=== PATIENT | female | born 1965 | race Caucasian/White ===

== ENCOUNTER → 2018-10-15 | Outpatient (CLI) | payer OTHER ==
[2015-01-07 15:23] VITALS: BP 106/59
--- NOTE | 2018-10-15 16:00 | RAD ---
Chest, 2 views, 10/15/2018: HISTORY: Shoulder pain and chest discomfort The heart size and pulmonary vascularity are normal. There is minimal scarring in the left base laterally. No acute infiltrate is seen. There is no evidence of pleural fluid. Mild degenerative changes are evident in the spine. IMPRESSION: No acute cardiopulmonary abnormality is detected. Left shoulder, 3 views, 10/15/2018: No fracture or dislocation is identified. No significant arthritic change is seen. The periarticular soft tissues are unremarkable. IMPRESSION: No significant left shoulder abnormality is detected. Electronically signed by: Kenneth Singh MD (10/15/2018 3:56 PM) [facility]
== END | disposition home or self-care (01) ==
LOC: PMG 15:17
PROVIDERS: ATTEND Registered Nurse
DX: R07.89 Other chest pain (principal); M25.512 Pain in left shoulder; M47.814 Spondylosis without myelopathy or radiculopathy, thoracic region
CPT/HCPCS: 71046; 73030

== ENCOUNTER → 2020-02-22 | Outpatient (CLI) | payer OTHER ==
[2015-01-07 15:23] VITALS: BP 106/59
--- NOTE | 2020-02-22 15:16 | RAD ---
EXAM: Chest, 2 views HISTORY: Cough. Chest pain. COMPARISON: 10/15/2018 FINDINGS: 2 views of the chest are obtained. There is no infiltrate, pleural effusion or pneumothorax. The heart is normal in size. IMPRESSION: No acute pulmonary finding. Electronically signed by: Carmen Alfredo MD (02/22/2020 3:13 PM) [id number]
== END | disposition home or self-care (01) ==
LOC: PMG 14:53
PROVIDERS: ATTEND Family Medicine
DX: R05 Cough (principal)
CPT/HCPCS: 71046

== ENCOUNTER → 2021-03-24 | Outpatient (CLI) | payer OTHER ==
[2015-01-07 15:23] VITALS: BP 106/59
--- NOTE | 2021-03-24 10:52 | RAD ---
XR HIP_RT 2-3VIEWS History: Reason: RIGHT HIP PAIN / Spl. Instructions: / History: Technique: 2 views right hip Comparison: None. Findings: Normal alignment. No fracture. Impression: 1. No acute osseous abnormality. Electronically signed by: Johnathon Chin DO (03/24/2021 10:50 AM) [facility]
== END ==
LOC: PMG 09:28
PROVIDERS: ATTEND Family Medicine
DX: M25.551 Pain in right hip (principal)
CPT/HCPCS: 73502

== ENCOUNTER → 2021-07-03 | Outpatient (CLI) | payer OTHER ==
[2015-01-07 15:23] VITALS: BP 106/59
--- NOTE | 2021-07-03 08:10 | RAD ---
EXAMINATION: XR CHEST 2V CLINICAL HISTORY: COUGH X 4 DAYS RIGHT POSTERIOR RIB PAIN, PALPITATIONS WORSE EXAM DATE/TIME: 07/03/2021 7:40 AM COMPARISON: None FINDINGS: Lines, Tubes, and Devices: None. Cardiomediastinal Silhouette: Normal heart size. Lungs and Pleura: Question minimal patchy opacities in the right lower lung zone. Minimal bibasilar s ubsegmental atelectasis. No pleural effusion. Pulmonary vasculature unremarkable. Bones and Soft Tissues: Degenerative changes of the thoracic spine. Cholecystectomy clips. IMPRESSION: Question minimal patchy airspace disease in the right lower lung zone. Electronically signed by: Williams To DO (07/03/2021 8:08 AM) [facility]
== END ==
LOC: RAD 07:34
PROVIDERS: ATTEND Nurse Practitioner Family
DX: J98.11 Atelectasis (principal); R05 Cough
CPT/HCPCS: 71046

== ENCOUNTER → 2021-08-15 | Outpatient (CLI) | payer OTHER ==
[2015-01-07 15:23] VITALS: BP 106/59
--- NOTE | 2021-08-15 11:56 | RAD ---
EXAM: Left knee, 2 views. HISTORY: Fall. COMPARISON: None. FINDINGS: 2 views of the left knee are obtained. There is no fracture, dislocation or subluxation. Th ere is trace joint fluid, without a significant effusion. IMPRESSION: No acute osseous finding. Electronically signed by: Carmen Alfredo MD (08/15/2021 11:53 AM) [id number]
== END ==
LOC: RAD 11:34
PROVIDERS: ATTEND Physician Assistant
DX: M25.561 Pain in right knee (principal)
CPT/HCPCS: 73560

== ENCOUNTER 2021-12-19 20:26 | Emergency (ER) | payer OTHER ==
[~2021-12-19] VITALS: Ht 157.5 cm; Wt 108.0 kg
--- NOTE | 2021-12-19 20:34 | PHYS DOC ---
Past History Past Medical History: No Pertinent History Past Surgical History: No Surgical History Alcohol Use: None Drug Use: None Adult General Chief Complaint Chief Complaint: CHEST PAIN HPI HPI Patient is a 56-year-old female who presents with chest pain, and dry cough for about 8 months. States she has seen her primary care physician has had a chest x-ray and was told it was likely due to things such as allergies or postnasal drip. Patient also has a history of GERD and was recently switched from omeprazole to pantoprazole. States it does get worse at night. Denies any rece nt traumas, travels or illnesses, fevers, shortness of breath, dyspnea on exertion, orthopnea, PND or edema. Denies any history of smoking or asthma. Denies any abdominal pain, nausea, vomiting, diarrhea, blood in the stool, dysuria or hematuria. Review of Systems Review of Systems Review of systems otherwise unremarkable except noted in HPI Allergies Allergies Allergies Coded Allergies Type Severity Reaction Last Updated Verified Penicillins Allergy Intermediate Itching 01/07/15 Yes Physical Exam Physical Exam Constitutional: Well developed, well nourished, no acute distress, non-toxic appearance. [] HENT: Normocephalic, atraumatic, bilateral external ears normal, oropharynx moist, no oral exudates, nose normal. [] Eyes: conjunctiva normal, no discharge. [] Neck: Normal range of motion, no tenderness, supple, no stridor. [] Cardiovascular:Heart rate regular rhythm, no murmur [] Lungs & Thorax: Bilateral breath sounds clear to auscultation [] Abdomen: soft, no tenderness, no masses, no pulsatile masses. [] Skin: Warm, dry, no erythema, no rash. [] Back: No tenderness, no CVA tenderness. [] Extremities: No tenderness, no cyanosis, no clubbing, ROM intact, no edema. [] Neurologic: Alert and oriented X 3, no focal deficits noted. [] Psychologic: Affect normal, judgement normal, mood normal. [] EKG EKG [] Radiology/Procedures Radiology/Procedures [] Heart Score C/O Chest Pain: Yes HEART Score for Chest Pain: HEART Score for Chest Pain Response (Comments) Value History Slighlty/Non-Suspicious 0 ECG Nonspecific Repolarizatio 1 Age >45 - < 65 1 Risk Factors 1 or 2 Risk Factors 1 Troponin < Normal Limit 0 Total 3 Risk Factors: Risk Factors: DM, Current or recent (<one month) smoker, HTN, HLP, family h istory of CAD, obesity. Risk Scores: Risk Factors: DM, Current or recent (<one month) smoker, HTN, HLP, family history of CAD, obesity. Course & Med Decision Making Course & Med Decision Making Patient is a 56-year-old female presents with chest pain secondary to a cough she has had for 8 months Vital signs not concerning. Physical exam noted above. EKG with a rate of 80, QRS of 86, QTc of 530, no STEMI. Troponin normal. Given GI cocktail. Chest x-ray was suspicious area in the left lower lobe and costophrenic angle suggestive of pneumonia/parapneumonic effusion Started on antibiotics. Discussed finding with patient. Discussed symptom control at home. Advised to follow-up in the morning with primary care physician. Gave return precautions to the ED. Patient grateful, verbalized understanding and agreed with plan of discharge. Dragon Disclaimer Dragon Disclaimer This electronic medical record was generated, in whole or in part, using a voice recognition dictation system. Departure Departure: Impression: Primary Impression: Chest pain Additional Impression: Pneumonia Disposition: HOME / SELF CARE / HOMELESS Condition: STABLE Referrals: PCP,NO (PCP) SANDRA BORGES MD Patient Instructions: Pneumonia, Adult Additional Instructions: Thank you for coming into the emergency department tonight and allowing us to take care of you. Please read the attached information carefully to go over the things we discussed. We are started on antibiotics today for an area in your left lower lobe that appears to be pneumonia on chest x-ray. It is very important that you take your antibiotics as prescribed and until gone. You can take Tylenol, ibuprofen, as needed as well as Benadryl and [id number] dextromethorphan for cough. Please follow-up in the morning with your primary care physician update on your ED visit and set up a follow-up as soon as you can for reevaluation. Please come back with new or concerning symptoms as we discussed. Scripts Levofloxacin (LEVOFLOXACIN) 500 Mg Tablet 1 TAB PO DAILY for PNA for 6 Days, #6 TAB Prov: SHER WITT MD 12/19/21 Problem Qualifiers SHER WITT MD Dec 19, 2021 20:34
[2021-12-19 21:29] LABS: BASO # 0.1 x10^3/uL (0.0-0.2); BASO % 1 % (0-3); EOS # 0.1 x10^3/uL (0.0-0.7); EOS % 1 % (0-3); HEMATOCRIT 46.2 % (36.0-47.0); HEMOGLOBIN 15.5 g/dL (12.0-15.5); LYMPH # 3.1 x10^3/uL (1.0-4.8); LYMPH % 25 % (24-48); MEAN CORPUSCULAR HEMOGLOBIN 29 pg (25-35); MEAN CORPUSCULAR HGB CONC 34 g/dL (31-37); MEAN CORPUSCULAR VOLUME 87 fL (79-100); MONO # 0.7 x10^3/uL (0.0-1.1); MONO % 6 % (0-9); NEUT # 8.2 x10^3uL (1.8-7.7); NEUT % 67 % (31-73); PLATELET COUNT 291 x10^3/uL (140-400); RED BLOOD COUNT 5.29 x10^6/uL (3.50-5.40); RED CELL DISTRIBUTION WIDTH 14.2 % (11.5-14.5); WHITE BLOOD COUNT 12.2 x10^3/uL (4.0-11.0)
[2021-12-19] MEDS ORDERED: LIDO:MAALOX 1:1 20 ML SINGLE DOSE. PO ONE (21:30)
[2021-12-19 21:34] LABS: CALCIUM 8.9 mg/dL (8.5-10.1); CREATININE 1.1 mg/dL (0.6-1.0); GFR 51.4; MAGNESIUM 2.3 mg/dL (1.8-2.4); POTASSIUM 3.8 mmol/L (3.5-5.1)
[2021-12-19] MEDS ORDERED: LEVO500T9 PO (21:56)
--- NOTE | 2021-12-19 21:56 | RAD ---
Exam: Chest one view INDICATION: Chest pain TECHNIQUE: Frontal view of the chest Comparisons: 07/03/2021 FINDINGS: The cardiomediastinal silhouette and pulmonary vessels are within normal limits. Patchy left basilar airspace disease. No pleural effusion. IMPRESSION: Left basilar airspace disease may relate to atelectasis or developing infectious process. Electronically signed by: Luis Sharma MD (12/19/2021 9:53 PM) [facility]
[2021-12-19 22:22] VITALS: BP 106/66
[2021-12-19] MEDS ORDERED: levoFLOXacin 500 MG TABLET PO ONE (22:30)
[2021-12-19] MEDS ORDERED: guaiFENesin/CODEINE 100mg/10mg 5 ML LIQUID PO ONE (22:30)
[2021-12-19] MEDS ORDERED: diphenhydrAMINE HCL 25 MG CAPSULE PO ONE (22:30)
[2021-12-19] MEDS ORDERED: ALBUTEROL SULFATE 8GM INHALER. INH ONE (22:30)
--- NOTE | 2021-12-20 06:46 | EKG ---
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
== END 2021-12-19 22:22 | disposition home or self-care (01) ==
LOC: ER 20:26
DX: J18.9 Pneumonia, unspecified organism (principal); R07.89 Other chest pain; Z88.0 Allergy status to penicillin
CPT/HCPCS: 36415; 71045; 80048; 83735; 84484; 85025; 93005; 94640; 99285; Q0163; 94664